=== PATIENT | female | born 1955 | race African-American/Black ===

== ENCOUNTER → 2016-04-21 | Day surgery (SDC) | payer BC ==
[~2016-04-21] MED LIST: FENTANYL PF 100 MCG/2 ML VIAL. IV PRN; HYDROMORPHONE 2 MG/ML VIAL. IV PRN; IV RINGERS,LACTATED 1000ML 1,000 ML IV SCH; LIDOCAINE 1% 1 ML SYRINGE. ID PRN; LIDOCAINE 2% PF Vial for OR 5 ML VIAL. ONE; MORPHINE SULFATE 2 MG/ML DISP.SYRIN. IV PRN; MULT1TAB52 PO; ONDANSETRON PF 4 MG/2 ML VIAL. IV PRN; PROCHLORPERAZINE 10 MG/2 ML VIAL. IV PRN; PROPOFOL 20 ML IV ONE
--- NOTE | 2016-04-21 09:42 | PDOC1 ---
History and Physical Date of Admission Date of Admission DATE: 04/21/16 TIME: 09:35 Identification/Chief Complaint Chief Complaint CRC screening. Source Source: Chart review, Patient History of Present Illness History of Present Illness 60 croatian/o female here for CRC screening. Last colonoscopy in 11/2007 revealed multiple polyps (histology not available). Infrequent stools, but not really meaningful constipation and uses OTC laxitives prn. No diarrhea, overt bleeding , weight loss or anorexia. No GI family history of note. No dyspepsia, dysphagia, GB, liver or pancreatic history. Past Medical History Past Medical History Usual childhood illnesses w/o sequelae. No other. Past Surgical History Past Surgical History: Breast Biopsy, Tubal Ligation, Tonsillectomy, Hysterectomy Family History Family History: Coronary Artery Disease, Diabetes Social History Smoke: <1 pack per day ALCOHOL: occassional Drugs: None Current Medications Current Medications Current Medications Ondansetron HCl (Zofran) 4 mg PRN Q6HRS PRN IV Nausea; Start 04/21/16 at 07:00; Stop 04/22/16 at 06:59; Status UNV Fentanyl Citrate (Fentanyl 2ml Vial) 25 mcg PRN Q5MIN PRN IV MILD PAIN; Start 04/21/16 at 07:00; Stop 04/22/16 at 06:59; Status UNV Fentanyl Citrate (Fentanyl 2ml Vial) 50 mcg PRN Q5MIN PRN IV MODERATE PAIN; Start 04/21/16 at 07:00; Stop 04/22/16 at 06:59; Status UNV Morphine Sulfate 1 mg 1 mg PRN Q10MIN PRN IV SEVERE PAIN; Start 04/21/16 at 07: 00; Stop 04/22/16 at 06:59; Status UNV Lactated Ringer's (Iv Lactated Ringers) 1,000 ml @ 0 mls/hr Q0M IV ; Start 04/21 at 07:00; Stop 04/21/16 at 18:59; Status UNV Lidocaine HCl 2 ml 1X PRN PRN ID IV START; Start 04/21/16 at 07:00; Stop at 06:59; Status UNV Hydromorphone HCl (Dilaudid) 0.5 mg PRN Q10MIN PRN IV SEVERE PAIN, Second choice; Start 04/21/16 at 07:00; Stop 04/22/16 at 06:59; Status UNV Prochlorperazine Edisylate (Compazine) 5 mg PACU PRN PRN IV NAUSEA; Start at 07:00; Stop 04/22/16 at 06:59; Status UNV Active Scripts Active Reported Multivitamins (Multivitamin) 1 Each Tablet 1 Tab PO DAILY Allergies Allergies: Coded Allergies: No Known Drug Allergies (Unverified , 04/21/16) ROS Review of System 10-point review negative. Physical Exam General: Alert, Oriented X3, Cooperative, No acute distress Lungs: Clear to auscultation Heart: S1S2, RRR, no gallops, no murmurs Abdomen: Normal bowel sounds, Soft, No tenderness, No hepatosplenomegaly, No masses Rectal Exam: deferred Extremities: No cyanosis, No edema Skin: No significant lesion Neuro: Normal speech, Strength at 5/5 X4 ext, Normal tone, Sensation intact, Cranial nerves 3-12 NL, Reflexes 2+ Psych/Mental Status: Mental status NL, Mood NL Vitals Vitals Per nursing record. VTE Prophylaxis Ordered VTE Prophylaxis Devices: No VTE Pharmacological Prophylaxi: No Assessment/Plan Assessment/Plan IMP: History of polyps, due for surveillance. PLAN: colonoscopy. RICARDO MORALES MD Apr 21, 2016 09:42
--- NOTE | 2016-04-21 10:28 | PDOC4 ---
PROCEDURE Procedure colonoscopy/biopsies IND: h/o polyps Meds: Per anesthesia. Findings: DAVID normal. multiple diverticula, hepatic flexure to sigmoid. 4 polyps, 2-6mm along sigmoid; removed with biopsy forceps. Small internal hemorrhoids noted. Percy. well. IMP: polyps diverticulosis small hemorrhoids. REC: Await path. repeat procedure based on path. resume home meds and diet. f/u in 2 weeks. RICARDO MORALES MD Apr 21, 2016 10:28
[2016-04-21 10:43] VITALS: BP 134/73
--- NOTE | 2016-04-22 11:11 | PATHOLOGY ---
PATHOLOGY REPORT * * * * * * * * FINAL DIAGNOSIS: Colon biopsies, proximal sigmoid polyp: - Segments of tubular adenoma and hyperplastic polyp. COMMENT: Sections of the proximal sigmoid colon biopsies reveal several segments of tubular adenoma and several segments of hyperplastic polyp. The findings are consistent with a mixed hyperplastic and adenomatous polyp. There is no high grade dysplasia or evidence of malignancy. (JPM:all; d/t: 04/22/2016) REPORT ELECTRONICALLY SIGNED BY: Tanmay Lopez M.D. DATE/TIME: 04/22/2016 11:09 * * * * * * * * GROSS PATHOLOGY: Received in formalin labeled "Marcie Wills and proximal sigmoid polyp," are 7 segments of quintana soft tissue measuring 1.7 x 0.3 x 0.2 cm in aggregate dimensions and ranging from 0.2 to 0.4 cm in maximum dimension. The specimen is submitted entirely in cassette A1. (TTL; 04/21/2016) INITIAL CPT CODE(S): A; 85420 Professional services performed [place] [facility] [place] [address] Technical services performed by [facility] at [address] [place] [address], [facility] [address] [address]. SPECIMEN(S) RECEIVED: A.Proximal sigmoid polyp CLINICAL HISTORY: History of polyps PATIENT: MARCIE WILLS /AGE: 812/18/1955 (Age: 60) PATIENT #: [id number] ALT CASE #: SPECIMEN COLLECTION DATE: 04/21/2016 SPECIMEN RECEIVED DATE: 04/21/2016 [facility] - [address] [place] [address] - PHONE: [phone] * * * END OF REPORT * * *
== END | disposition home or self-care (01) ==
LOC: ENDOS 09:08
PROVIDERS: ATTEND Internal Medicine Gastroenterology
DX: Z12.11 Encounter for screening for malignant neoplasm of colon (principal); D12.5 Benign neoplasm of sigmoid colon; K63.5 Polyp of colon; K57.30 Diverticulosis of large intestine without perforation or abscess without bleeding; K64.8 Other hemorrhoids; Z98.51 Tubal ligation status; Z90.710 Acquired absence of both cervix and uterus
CPT/HCPCS: 45380; 88305; J2704

== ENCOUNTER → 2017-03-22 | Outpatient (CLI) | payer BC ==
[2016-04-21 10:43] VITALS: BP 134/73
[~2017-03-22] MED LIST changes: -FENTANYL PF 100 MCG/2 ML VIAL. IV PRN; -HYDROMORPHONE 2 MG/ML VIAL. IV PRN; -IV RINGERS,LACTATED 1000ML 1,000 ML IV SCH; -LIDOCAINE 1% 1 ML SYRINGE. ID PRN; -LIDOCAINE 2% PF Vial for OR 5 ML VIAL. ONE; -MORPHINE SULFATE 2 MG/ML DISP.SYRIN. IV PRN; -ONDANSETRON PF 4 MG/2 ML VIAL. IV PRN; -PROCHLORPERAZINE 10 MG/2 ML VIAL. IV PRN; -PROPOFOL 20 ML IV ONE
--- NOTE | 2017-03-23 17:59 | KCIC ---
Bilateral digital screening mammograms: Reason for examination: Routine screening. Comparison is made to previous studies dated 03/16/2016 and 03/13/2015. Interpretation was made with the benefit of CAD. The skin and nipples show no abnormalities. No abnormal axillary lymph nodes are seen. The breast parenchyma shows scattered fibroglandular density. (Breast density: Category B.) There are no dominant masses, suspicious calcifications or architectural distortions. Impression: No evidence of malignancy. Recommend routine screening. BI-RADS Category 1: Negative. "Our facility is accredited by the [employer] Mammography Program." This patient's information has been entered into a reminder system for the patient to be notified with the results of her examination and a target date for the next mammogram. Electronically signed by: Nohemi Hendricks MD (03/23/2017 5:56 PM) [id number]
== END | disposition home or self-care (01) ==
LOC: KCIC MAMMO 16:45
PROVIDERS: ATTEND Obstetrics & Gynecology
DX: Z12.31 Encounter for screening mammogram for malignant neoplasm of breast (principal)
CPT/HCPCS: G0202; 77067

== ENCOUNTER → 2018-04-04 | Outpatient (CLI) | payer BC ==
[2016-04-21 10:43] VITALS: BP 134/73
--- NOTE | 2018-04-05 07:57 | KCIC ---
EXAM: Bilateral screening mammogram. HISTORY: 62-year-old female presents for screening mammography. TECHNIQUE: Full-field digital craniocaudal and mediolateral oblique views of both breasts are obtained for evaluation. Computer aided detection with Zum[employer] software version 9.3 was applied. COMPARISON: 03/22/2017 and 03/13/2015. BREAST PARENCHYMAL DENSITY: Level B - Scattered fibroglandular densities. FINDINGS: There are asymmetries within both breasts in the mediolateral oblique projection which does not persist on craniocaudal images, consistent with summation artifact. There is no convincing mass. There is no suspicious calcification or distortion within either breast. IMPRESSION: BI-RADS Category 2: Benign finding(s). RECOMMENDATION: Annual mammography is recommended. If your mammogram demonstrates that you have dense breast tissue, which could hide abnormalities, and if you have other risk factors for breast cancer that have been identified, you might benefit from supplemental screening tests that may be suggested by your ordering physician. Dense breast tissue, in and of itself, is a relatively common condition. This information is not provided to cause undue concern, but rather to raise your awareness and to promote discussion with your physician regarding the presence of other risk factors, in addition to dense breast tissue. A report of your mammography results will be sent to you and your physician. You should contact your physician if you have any questions or concerns regarding this report. Mammography is a sensitive method for finding small breast cancers, but it does not detect them all and is not a substitute for careful clinical examination. A negative mammogram does not negate a clinically suspicious finding and should not result in delay in biopsying a clinically suspicious abnormality. PQRS compliance statement - Patient information was entered into a reminder system with a target due date for the next mammogram. "Our facility is accredited by the [employer] Mammography Program." Electronically signed by: Shoshana Ramos MD (04/05/2018 7:53 AM) [facility]
== END | disposition home or self-care (01) ==
LOC: KCIC MAMMO 17:39
PROVIDERS: ATTEND Obstetrics & Gynecology
DX: Z12.31 Encounter for screening mammogram for malignant neoplasm of breast (principal)
CPT/HCPCS: 77067

== ENCOUNTER → 2019-04-10 | Outpatient (CLI) | payer BC ==
[2016-04-21 10:43] VITALS: BP 134/73
--- NOTE | 2019-04-11 14:27 | KCIC ---
BILATERAL SCREENING MAMMOGRAM History: Routine screening. Comparison: Bilateral mammogram 04/04/2018 and dating back to 2014. Technique: Routine bilateral digital mammogram views were obtained. Findings: Breast Tissue Density B : There are scattered areas of fibroglandular density. There are no dominant masses, suspicious microcalcifications, or architectural distortion. IMPRESSION: No mammographic evidence of malignancy. Recommend routine screening. BI-RADS category 1: Negative. The images were reviewed with computer aided detection. Patient information is entered into the reminder system with a target due date for the next screening mammogram. Mammography is the most sensitive method for finding small breast cancers, but it does not detect them all and is not a substitute for careful clinical examination. A negative mammogram does not negate a clinically suspicious finding and should not result in delay in biopsying a clinically suspicious abnormality. "Our facility is accredited by the [employer] Mammography Program." Electronically signed by: Christofer Posada MD (04/11/2019 2:24 PM) [id number]
== END | disposition home or self-care (01) ==
LOC: KCIC MAMMO 17:31
PROVIDERS: ATTEND Obstetrics & Gynecology
DX: Z12.31 Encounter for screening mammogram for malignant neoplasm of breast (principal)
CPT/HCPCS: 77067

== ENCOUNTER → 2020-04-15 | Outpatient (CLI) | payer BC ==
[2016-04-21 10:43] VITALS: BP 134/73
[~2020-04-15] MED LIST changes: +MULT-445 PO; -MULT1TAB52 PO
--- NOTE | 2020-04-15 16:08 | KCIC ---
EXAM: Bilateral screening mammogram. HISTORY: 64-year-old female presents for screening mammography. TECHNIQUE: Full-field digital craniocaudal and mediolateral oblique views of both breasts are obtaine d for evaluation. Computer aided detection was applied. COMPARISON: 04/10/2019 BREAST PARENCHYMAL DENSITY: Level B - Scattered fibroglandular densities. FINDINGS: There is no new suspicious mass, microcalcification or region of architectural distortion. There is stable areas of asymmetry and nodularity within both breasts. IMPRESSION: BI-RADS Category 2: Benign finding(s). RECOMMENDATION: Annual mammography is recommended. If your mammogram demonstrates that you have dense breast tissue, which could hide abnormalities, and if you have other risk factors for breast cancer that have been identified, you might benefit from s upplemental screening tests that may be suggested by your ordering physician. Dense breast tissue, i n and of itself, is a relatively common condition. This information is not provided to cause undue c oncern, but rather to raise your awareness and to promote discussion with your physician regarding th e presence of other risk factors, in addition to dense breast tissue. A report of your mammography re sults will be sent to you and your physician. You should contact your physician if you have any ques tions or concerns regarding this report. Mammography is a sensitive method for finding small breast cancers, but it does not detect them all a nd is not a substitute for careful clinical examination. A negative mammogram does not negate a clin ically suspicious finding and should not result in delay in biopsying a clinically suspicious abnorma lity. PQRS compliance statement - Patient information was entered into a reminder system with a target due date for the next mammogram. "Our facility is accredited by the [employer] Mammography [employer]." Electronically signed by: Shoshana Ramos MD (04/15/2020 4:05 PM) [email or web address]
== END ==
LOC: KCIC MAMMO 15:38
PROVIDERS: ATTEND Obstetrics & Gynecology
DX: Z12.31 Encounter for screening mammogram for malignant neoplasm of breast (principal)
CPT/HCPCS: 77067

== ENCOUNTER → 2021-04-21 | Outpatient (CLI) | payer BC ==
[2016-04-21 10:43] VITALS: BP 134/73
--- NOTE | 2021-04-21 17:04 | KCIC ---
Bilateral digital screening mammograms with 3-D tomosynthesis: Reason for examination: Routine screening. Comparison is made to previous studies dated back to 03/13/2015. Bilateral mammograms in CC and oblique projections were obtained with 2-D imaging and 3-D tomosynthes is imaging on a Siemens Inspiration unit and reviewed on the workstation. Interpretation was made wit h the benefit of CAD. The skin and nipples show no abnormalities. No abnormal axillary lymph nodes are seen. The breast par enchyma shows scattered fatty and fibroglandular density. (Breast density: Category B.) There continu es to be a small circumscribed nodule at the 12:00 B position in the right breast which is stable. Th ere are no new dominant masses, suspicious calcifications or architectural distortion. Impression: No evidence of malignancy. Recommend routine screening. BI-RAD Category 2: Benign. "Our facility is accredited by the [employer] Mammography Program." This patient's information has been entered into a reminder system for the patient to be notified wit h the results of her examination and a target date for the next mammogram. Electronically signed by: Nohemi Hendricks MD (04/21/2021 5:02 PM) [email or web address]
== END ==
LOC: KCIC MAMMO 16:00
PROVIDERS: ATTEND Obstetrics & Gynecology
DX: Z12.31 Encounter for screening mammogram for malignant neoplasm of breast (principal)
CPT/HCPCS: 77063; 77067